=== PATIENT | female | born 1980 | race Two or more races ===

== ENCOUNTER 2016-05-23 13:40 | Emergency (ER) | payer MEDICARE, MEDICAID ==
[~2016-05-23] VITALS: Ht 167.6 cm; Wt 45.4 kg
[2016-05-23] MEDS ORDERED: XANAX1 MG ORAL (13:44)
[2016-05-23] MEDS ORDERED: GEODON40 MG ORAL (13:47)
[2016-05-23] MEDS ORDERED: KLONOPIN0.5 MG ORAL (13:47)
[2016-05-23] MEDS ORDERED: CLOZARIL100 MG ORAL (13:47)
[2016-05-23 14:20] VITALS: BP 128/74
--- NOTE | 2016-05-23 14:21 | Emergency Room Report ---
History of Present Illness General Chief Complaint: Abdominal Pain Source: Medical Record Present Illness Allergies: Coded Allergies: No Known Allergies (Unverified , 05/23/16) Patient History Now: No Nursing Documentation-PMH Hx Cardiac Problems: No Hx Hypertension: No Hx Pacemaker: No Hx Asthma: No Hx COPD: No Hx Diabetes: No Hx Cancer: No Hx Gastrointestinal Problems: No Hx Dialysis: No History Of Psychiatric Problem: No Hx Cerebrovascular Accident: No Hx Seizures: No Physical Exam Vital Signs Date Time Temp Pulse Resp B/P Pulse Ox O2 Delivery O2 Flow Rate FiO2 05/23/16 13:36 102.0 86 16 128/74 99 Room Air Medical Decision Making ER Course Please note that the patient left without being seen Last Vital Signs Date Time Temp Pulse Resp B/P Pulse Ox O2 Delivery O2 Flow Rate FiO2 05/23/16 13:36 102.0 86 16 128/74 99 Room Air Disposition: LEFT W/OUT BEING SEEN Condition: Unknown ALEN VARGAS D.O. May 23, 2016 14:21
== END 2016-05-23 14:20 | disposition left against medical advice (07) ==
LOC: EDBD 13:40 → EMR 14:11
DX: R10.9 Unspecified abdominal pain (principal); Z53.21 Procedure and treatment not carried out due to patient leaving prior to being seen by health care provider
CPT/HCPCS: 99281

== ENCOUNTER 2016-07-04 19:24 | Emergency (ER) | payer MEDICARE, MEDICAID ==
[~2016-07-04] VITALS: Ht 170.2 cm; Wt 59.0 kg
[~2016-07-04 19:24] MED LIST: CLOZARIL100 MG ORAL; GEODON40 MG ORAL; KLONOPIN0.5 MG ORAL; XANAX1 MG ORAL
--- NOTE | 2016-07-04 20:33 | Emergency Room Report ---
History of Present Illness General Chief Complaint: Behavioral Complaint Source: EMS Present Illness HPI Patient was brought in by paramedics for report of altered mental status patient was placed on a 5150 previously And was being transported to a psychiatric facility and the patient became unresponsive Paramedics responded and brought the patient emergency room Patient was awake throughout the procedure and transfer Here the patient refuses to answer any further questions Denies any chest pain Upon attempting to obtain EKG patient refuses History of present illness remains somewhat limited given her refusal to answer any questions Allergies: Coded Allergies: No Known Allergies (Unverified , 05/23/16) Patient History Past Medical History: see triage record Pertinent Family History: none Reviewed Nursing Documentation: PMH: Agreed, PSxH: Agreed Nursing Documentation-PMH Hx Cardiac Problems: No Hx Hypertension: No Hx Pacemaker: No Hx Asthma: No Hx COPD: No Hx Diabetes: No Hx Cancer: No Hx Gastrointestinal Problems: No Hx Dialysis: No History Of Psychiatric Problem: Yes Hx Cerebrovascular Accident: No Hx Seizures: No Review of Systems All Other Systems: negative except mentioned in HPI Physical Exam Vital Signs Date Time Temp Pulse Resp B/P Pulse Ox O2 Delivery O2 Flow Rate FiO2 07/04/16 19:06 107 18 99/52 96 Sp02 EP Interpretation: reviewed, normal General Appearance: no apparent distress Head: normocephalic, atraumatic Eyes: bilateral eye PERRL ENT: normal pharynx Neck: supple Respiratory: lungs clear Cardiovascular #1: regular rate, rhythm Gastrointestinal: non tender, soft Musculoskeletal: other - Patient has no follow commands however is observed moving all extremities without focal deficit Neurologic: responsive Psychiatric: other - On 5150 Skin: no rash Lymphatic: no adenopathy Medical Decision Making Diagnostic Impression: Primary Impression: Psychiatric diagnosis Additional Impressions: Psychiatric hospitalization Refusal of care by patient ER Course Given the patient's history and presentation I did want to obtain EKG and further cardiac monitoring how the patient adamantly refuses Has a benign medical evaluation hemodynamically remained stable This and will continue with her transfer to psychiatric facility for continued care Last Vital Signs Date Time Temp Pulse Resp B/P Pulse Ox O2 Delivery O2 Flow Rate FiO2 07/04/16 19:06 107 18 99/52 96 Status: improved Disposition: XFER TO PSYCH HOSP/UNIT Condition: Stable ALEN VARGAS D.O. Jul 04, 2016 20:33
[2016-07-04 21:12] VITALS: BP 120/71
[2016-07-04 21:19] VITALS: BP 120/71
== END 2016-07-04 21:20 ==
LOC: EDBD 19:24 → EMR 21:07
DX: R41.82 Altered mental status, unspecified (principal)
CPT/HCPCS: 99285